=== PATIENT | male | born 1990 | race Caucasian/White ===

== ENCOUNTER 2022-04-27 16:07 | Emergency (ER) | payer MEDICAID ==
[~2022-04-27] VITALS: Ht 182.9 cm; Wt 95.6 kg
[2022-04-27] MEDS ORDERED: ZITHROMAX200 MG PO (18:50)
[2022-04-27] MEDS ORDERED: FLOXIN OTIC0.3 % AS (18:50)
== END 2022-04-27 19:07 | disposition home or self-care (01) ==
LOC: ED 16:07
DX: H66.92 Otitis media, unspecified, left ear (principal); G40.909 Epilepsy, unspecified, not intractable, without status epilepticus

== ENCOUNTER 2022-05-05 15:57 | Emergency (ER) | payer MEDICAID ==
[~2022-05-05] VITALS: Ht 182.9 cm; Wt 95.5 kg
[~2022-05-05 15:57] MED LIST: FLOXIN OTIC0.3 % AS; ZITHROMAX200 MG PO
[2022-05-05 16:23] VITALS: BP 129/95
[2022-05-05] MEDS ORDERED: CEFDINIR250 MG/5 M PO (17:03)
[2022-05-05 17:11] VITALS: BP 129/95
== END 2022-05-05 17:12 | disposition home or self-care (01) ==
LOC: ED 15:57
DX: H66.92 Otitis media, unspecified, left ear (principal); Q90.9 Down syndrome, unspecified; G40.909 Epilepsy, unspecified, not intractable, without status epilepticus